=== PATIENT | male | born 1975 | race Asian ===

== ENCOUNTER 2016-10-23 09:35 | Emergency (ER) | payer OTHER ==
[~2016-10-23] VITALS: Ht 182.9 cm; Wt 84.5 kg
[2016-10-23 09:40] VITALS: Ht 182.9 cm; Wt 84.5 kg
[2016-10-23] MEDS ORDERED: NAPR-688 PO (09:59)
[2016-10-23] MEDS ORDERED: HYDR-906 PO (10:12)
--- NOTE | 2016-10-23 10:31 | ERD ---
ER Documentation Chief Complaint Date/Time DATE: 10/23/16 TIME: 10:26 Chief Complaint Complains of right foot and anle pain Hx of gout HPI This is a 41-year-old male with history of gout presenting to the emergency department complaining of right foot pain for the past 3 days. Patient states that it is warm to touch, describes the pain is constant and achy rating it 9 out of 10. Patient states that the pain has improved today but puffer tender. He states that he has a history of gout in the same spot a few times before. He does admit to having red meat. He denies alcohol. He is tried ibuprofen without much relief ROS All systems reviewed and are negative except as per history of present illness. Medications Home Meds Active Scripts Hydrocodone/Acetaminophen ([place] 5-325 Tablet) 1 Each Tablet, 1 TAB PO Q6H Y for PAIN, #20 TAB Prov:PUJA NOLASCO PA-C 10/23/16 Naproxen* (Naproxen*) 500 Mg Tablet, 500 MG PO BID Y for PAIN AND OR ELEVATED TEMP, #60 TAB Prov:PUJA NOLASCO PA-C 10/23/16 Allergies Allergies: Coded Allergies: No Known Allergy (Unverified , 10/23/16) PMhx/Soc Medical and Surgical Hx: pt denies Medical Hx, pt denies Surgical Hx Physical Exam Vitals Vital Signs Date Time Temp Pulse Resp B/P Pulse Ox O2 Delivery O2 Flow Rate FiO2 10/23/16 09:40 97.3 92 20 153/88 99 Physical Exam General: WD/WN, in no apparent distress, non-toxic appearing HENT: NC/AT Eyes: Conjunctiva normal Neck: Supple Pulm: Clear to auscultation, normal labored breathing; no wheezing/rales/ rhonchi heard CV: Good capillary refill GI: Non-distended, no guarding Back: No masses Ext: Neuro: Moves on all fours Skin: erythema, warm TTP to the right proximal base of the 1st and 2nd toe of right foot, restricted range of motion due to pain Psych: Normal mood Procedures/MDM This is a 41-year-old male presenting to the emergency department with acute gout attack of the right foot. I doubt that patient has cellulitis due to patient's history of present illness and physical exam. Patient is hematuria stable and neurovascular intact to be discharged home. Prescription for naproxen was provided. Discussed the patient to follow-up with his primary care physician, discussed with him that he may likely be a good candidate for allopurinol when this resolves since he has recurrent gout attacks. Discussed gout diet. Discussed to return to the ER for any worsening signs or symptoms. Patient understands and agrees with plan Departure Diagnosis: Primary Impression: Gout Condition: Fair Patient Instructions: Treating Gout Attacks, Eating to Prevent Gout, Gout Diet Additional Instructions: FOLLOW UP WITH YOUR PRIMARY CARE PHYSICIAN TOMORROW.Return to this facility if you are not improving as expected. Take all medicines as directed. Return to this facility if you are not improving as expected. PUJA NOLASCO PA-C Oct 23, 2016 10:31
== END 2016-10-23 10:18 | disposition home or self-care (01) ==
LOC: FTE 09:35
DX: M10.9 Gout, unspecified (principal)
CPT/HCPCS: 99283

== ENCOUNTER 2017-12-02 14:46 | Emergency (ER) | END 2017-12-02 17:34 | disposition home or self-care (01) ==